=== PATIENT | male | born 1985 | race African-American/Black ===

== ENCOUNTER 2019-10-27 21:45 | Emergency (ER) | payer SELFPAY ==
--- NOTE | 2019-10-28 01:02 | ER Document Report ---
HPI - HPI Time Seen by Provider: 10/28/19 00:54 Pain Level: 5 Context: Patient is a 34-year-old male who presents the emergency department with a chief complaint of left ankle swelling. Patient states that he woke up 1 day and noticed that his left ankle were swelling. Patient does have a bracelet noted to his left ankle. - ROS Systems Reviewed and Negative: No All other systems reviewed and negative - MUSCULOSKELETAL Musculoskeletal: REPORTS: Extremity pain - Left ankle, Swelling - left ankle - DERM Skin Color: Normal Skin Problems: None Past Medical History - Social History Smoking Status: Former Smoker Frequency of alcohol use: None Drug Abuse: None Family History: Reviewed & Not Pertinent - Past Medical History Cardiac Medical History: Reports: Hx Heart Murmur Renal/ Medical History: Denies: Hx Benign Prostatic Hyperplasia, Hx Testicular Torsion Past Surgical History: Reports: Hx Appendectomy - Immunizations Hx Diphtheria, Pertussis, Tetanus Vaccination: Yes Vertical Provider Document - CONSTITUTIONAL Agree With Documented VS: Yes Exam Limitations: No Limitations General Appearance: No Apparent Distress - INFECTION CONTROL TRAVEL OUTSIDE OF THE [place] IN LAST 30 DAYS: No - HEENT HEENT: Atraumatic, Normocephalic, PERRLA - NECK Neck: Normal Inspection - RESPIRATORY Respiratory: No Respiratory Distress - CARDIOVASCULAR Cardiovascular: Regular Rate, Regular Rhythm Pulses: Normal: Posterior tibial, Dorsalis pedis - MUSCULOSKELETAL/EXTREMETIES Musculoskeletal/Extremeties: FROM, Tender - Left ankle, Edema - Left ankle. negative: Eccymosis - NEURO Level of Consciousness: Awake, Alert, Appropriate Motor/Sensory: No Motor Deficit, No Sensory Deficit - DERM Integumentary: Warm, Dry, No Rash Course - Re-evaluation Re-evalutation: 10/28/19 03:11 Nursing staff was instructed to cut the bracelet off. That was done and the patient felt much better. X-ray is unremarkable, other than soft tissue swelling. Capillary refill less than 3 seconds. Dorsalis pedis and posterior tibial pulses 2+. No vascular compromise noted. Patient's ankle appeared better after the bracelet was cut off. Advised the patient to follow-up with the person who put the brace on and have them not put the brace on so tight. He is in agreement with this plan. Follow-up precautions were given. Verbal di scharge instructions were given to the patient. They verbalized understanding. They are stable for discharge. - Vital Signs Vital signs: Temp Pulse Resp BP Pulse Ox 98.7 F 87 14 123/82 96 10/28/19 00:53 10/27/19 22:12 10/27/19 22:12 10/27/19 22:12 10/27/19 22:12 Discharge - Discharge Clinical Impression: Ankle pain Qualifiers: Chronicity: acute Laterality: left Qualified Code(s): M25.572 - Pain in left ankle and joints of left foot Condition: Stable Disposition: HOME, SELF-CARE Additional Instructions: You were seen today in the emergency department for ankle pain. Your ankle pain was due to the bracelet being too tight on your ankle. Please follow-up with whoever put the ankle bracelet on and let them know that it was cut.
--- NOTE | 2019-10-28 01:34 | RADIOLOGY REPORT (SQ) ---
Left ankle radiographs: 10/28/2019 12:33 AM CDT HISTORY: 34-year-old patient with left ankle pain . COMPARISON: None available TECHNIQUE: AP, lateral, mortise views of the left ankle were obtained. FINDINGS: There are no findings to suggest an acute fracture or subluxation within the left ankle. There is diffuse soft tissue swelling seen about the left ankle The joint spaces are preserved. There is a monitoring device seen over the left ankle. IMPRESSION: There are no findings to suggest an acute fracture or subluxation within the left ankle.
[2019-10-28 02:50] VITALS: BP 124/75
== END 2019-10-28 03:15 | disposition home or self-care (01) ==
LOC: ER 21:45
DX: M25.572 Pain in left ankle and joints of left foot (principal); M79.89 Other specified soft tissue disorders; Z87.891 Personal history of nicotine dependence
CPT/HCPCS: 99283